=== PATIENT | female | born 1990 | race Caucasian/White ===

== ENCOUNTER 2017-07-08 10:21 | Emergency (ER) | payer OTHER, SELFPAY ==
[~2017-07-08] VITALS: Ht 161.3 cm; Wt 93.5 kg
[2017-07-08 10:30] VITALS: BP 119/72
[2017-07-08] MEDS ORDERED: PANTOPRAZOLE 40 MG IV ONE (11:03)
[2017-07-08] MEDS ORDERED: IBUPROFEN 200 MG TABLET ONE (11:08)
[2017-07-08] MEDS ORDERED: DEXAMETHASONE 4 MG/ML, 5ML ONE (11:08)
[2017-07-08] MEDS ORDERED: IBUPROFEN 200 MG TABLET PO ONE (11:30)
[2017-07-08] MEDS ORDERED: DEXAMETHASONE 4 MG/ML, 1ML PO ONE (11:30)
== END 2017-07-08 12:36 | disposition home or self-care (01) ==
LOC: ED 11:02
DX: B97.89 Other viral agents as the cause of diseases classified elsewhere (principal); J02.8 Acute pharyngitis due to other specified organisms
CPT/HCPCS: 87081; 87880; 99284; J1100